=== PATIENT | female | born 2000 | race Asian ===

== ENCOUNTER 2022-01-03 09:55 | Emergency (ER) | payer MEDICAID ==
[~2022-01-03] VITALS: Ht 160 cm; Wt 53.2 kg
[2022-01-03 10:29] VITALS: BP 104/76
[2022-01-03 11:16] LABS: Urine Bacteria FEW /hpf (None Seen); Urine Blood 2+ /uL (Negative); Urine Mucus FEW (None Seen); Urine Specific Gravity 1.028 (1.001-1.035); Urine WBC 2 /hpf (0 - 5)
== END 2022-01-03 11:46 | disposition left against medical advice (07) ==
LOC: ER 10:02
DX: R10.9 Unspecified abdominal pain (principal); J02.9 Acute pharyngitis, unspecified; R51.9 Headache, unspecified; R35.0 Frequency of micturition; Z53.21 Procedure and treatment not carried out due to patient leaving prior to being seen by health care provider
CPT/HCPCS: 81001

== ENCOUNTER 2023-12-15 07:50 | Emergency (ER) | payer MEDICAID ==
[~2023-12-15] VITALS: Ht 157.5 cm; Wt 62.1 kg
[~2023-12-15 07:50] MED LIST: HYDR25CA PO; LEVO500T91 PO
[2023-12-15 08:33] VITALS: BP 134/75; PULSE 105; RESP 16; TEMP 97.8; O2SAT 100
--- NOTE | 2023-12-15 08:43 | ED.PDOC ---
HPI Allergic reaction HPI Comments Portions of this chart may have been created with an modal fluency direct voice recognition software. Occasional wrong-word or "sound-alike" substitutions may have occurred due to the inherent limitations of voice recognition software. Please read the chart carefully and recognize, using context, where these subs titutions have occurred. This is a pleasant 23-year-old male that presents for an allergic reaction after eating peanut butter. Onto started last night. Complains that the throat is closing and has not taken medications for the symptoms listed above. No other complaint or concern Chief Complaint: Allergic Reaction Time Seen by MD: 08:02 Primary Care Provider: GABRIEL Brooks Notes: Nurses Notes, Medications, Allergies Allergies: Coded Allergies: NO KNOWN ALLERGIES (Unverified , 05/02/13) Home Meds Active Scripts Hydroxyzine Pamoate (Vistaril) 25 Mg Cap, 1 CAP PO BID, #30 CAP Prov:VIKAS SLADE 10/31/23 Levofloxacin Hemihydrate (LEVOFLOXACIN) 500 Mg Tab, 500 MG PO DAILY for 7 Days, #7 MG Prov:KWASI GALLEGOS MD 08/31/22 Information Source: Patient Mode of Arrival: Ambulatory Past Medical History PAST MEDICAL HISTORY: Anxiety Surgical History: Denies all surgeries 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 No tripod position no respiratory distress. No sternal retractions), TMs Normal Neck: Full Range of Motion, Non-Tender, Normal, Normal Inspection Respiratory: Chest Non-Tender, Lungs Clear, No Accessory Muscle Use, No Respiratory Distress, Normal Breath Sounds Cardiovascular: No Edema, No JVD, No Murmur, No Gallop, Normal Peripheral Pulses, Regular Rate/Rhythm Breast Exam: Deferred Gastrointestinal: No Organomegaly, Non Tender, No Pulsatile Mass, Normal Bowel Sounds, Soft Genitalia: Deferred Pelvic: Deferred Rectal: Deferred Extremities: No calf tenderness, Normal capillary refill, Normal inspection, Normal range of motion, Non-tender, No pedal edema Musculoskeletal : Apperance: Normal Neurologic: Alert, bridge rigger II-XII nml as Tested, No Motor Deficits, Normal Affect, Normal Mood, No Sensory Deficits Cerebellar Function: Normal Reflexes: Normal Skin: Dry, Normal Color, Warm Lymphatic: No Adenopathy Was a procedure done? Was a procedure done?: No Differential diagnosis (all) Differential Diagnosis: Anaphylaxis, Angioedema, Drug Reaction, Urticaria X-Ray, Labs, Meds, VS Vital Signs Date Time Temp Pulse Resp B/P (MAP) Pulse Ox O2 Delivery O2 Flow Rate FiO2 12/15/23 08:33 97.8 105 16 134/75 (94) 100 97.8 12/15/23 08:33 105 16 100 Room Air 12/15/23 07:58 97.8 105 16 134/75 (94) 100 Current Medications Medications (Trade) Dose Ordered Sig/Adriana Route Start Time Stop Time Status Last Admin Epinephrine HCl 0.3 mg ONCE ONCE IM 12/15/23 08:45 12/15/23 08:47 DC 12/15/23 08:49 X-Ray, Labs, Meds, VS Comment Pt presents ED for an allergic reaction. EPI administered in ED for treatment. Patient reports significant improvement in symptoms following treatment. Patient was monitored in the ED for an extended amount of time. EpiPen prescribed. Education provided on possible side effects of medication Follow-up with PCP in 1 to 2 days. Patient needs casing operator referral for further testing Return to ED if symptoms persist, or sooner if symptoms worsen Time of 1ST Reevaluation: 09:33 Reevaluation 1ST: Improved Patient Education/Counseling: Diagnosis, Treatment Family Education/Counseling: Diagnosis, Treatment Departure 1 Departure Time of Disposition: 09:36 Impression: Primary Impression: Allergic reaction Qualified Codes: T78.40XA - Allergy, unspecified, initial encounter Disposition: HOME / SELF CARE / HOMELESS Condition: Stable e-Prescriptions Epinephrine (Epinephrine) 0.3 Mg/0.3 Ml Inj 0.3 MG IJ UD for 1 Day, #1 INJ 0 Refills Prov: ILDA SMITH NP 12/15/23 Discharged With: Self Critical Care Note Critical Care Time?: No Stability Stability form required: No Heart Score Heart Score: Heart Score Response (Comments) Value History N/A 0 EKG N/A 0 Age N/A 0 Risk Factors N/A 0 Troponin N/A 0 Total 0 ILDA SMITH NP Dec 15, 2023 08:43
[2023-12-15] MEDS: EPINEPHrine HCL 1 MG/1 ML AMP IM ONE (08:49)
[2023-12-15] MEDS ORDERED: EPIN0.3I24 IJ (09:37)
== END 2023-12-15 09:44 | disposition home or self-care (01) ==
LOC: ER 07:50
DX: T78.1XXA Other adverse food reactions, not elsewhere classified, initial encounter (principal); F41.9 Anxiety disorder, unspecified; F17.210 Nicotine dependence, cigarettes, uncomplicated; Z79.899 Other long term (current) drug therapy; X58.XXXA Exposure to other specified factors, initial encounter
CPT/HCPCS: 96372; 99283; J0171